=== PATIENT | male | born 2000 | race Caucasian/White ===

== ENCOUNTER 2023-10-07 07:30 | Emergency (ER) | payer OTHER ==
[2023-10-07 07:48] VITALS: BP 122/85; PULSE 78; RESP 18; TEMP 97.9; BMI 21.3
[2023-10-07] MEDS ORDERED: IBUPROFEN 100 MG/5 ML UNIT DOSE CUPS PO ONE (08:53)
[2023-10-07] MEDS ORDERED: ACETAMINOPHEN 500 MG TABLET (FP) ONE (09:07)
== END 2023-10-07 09:19 | disposition home or self-care (01) ==
LOC: FER 07:30
DX: S69.91XA Unspecified injury of right wrist, hand and finger(s), initial encounter (principal); W18.30XA Fall on same level, unspecified, initial encounter; Y92.219 Unspecified school as the place of occurrence of the external cause
CPT/HCPCS: 73110-TC-RT-FY; 73130-TC-RT-FY; 99283-25